=== PATIENT | female | born 1955 | race Caucasian/White ===

== ENCOUNTER 2018-01-12 13:37 | Inpatient (IN) | payer OTHER ==
[~2018-01-12] VITALS: Ht 165.1 cm; Wt 58.5 kg
[~2018-01-12 13:37] MED LIST: AMOXICILLIN250 MG PO; ARICEPT5 MG PO; ATORVASTATIN CA20 MG PO; CITALOPRAM HBR20 MG PO; LEVOTHYROXINE50 MCG PO; MELOXICAM7.5 MG PO; PANTOPRAZOLE SO40 MG PO; RANITIDINE HCL300 MG PO; SUCRALFATE1 GM PO; ZOFRAN ODT4 MG
--- OUTSIDE RECORDS SUMMARY | 2018-01-12 13:39 | XMS REPORT | Clinical Summary ---
Author Author [facility] Organization [facility] Address Unknown Phone Unavailable Care Team Providers Care Weight Loss Counselor Name Role Phone Tomy Hoff MD PCP Unavailable Allergies No Known Allergies Current Medications Prescription Sig. Disp. Refills Start End Date Status Date atorvastatin (LIPITOR) 20 Take 20 mg by mouth once 2 07/20/20 Active MG tablet daily. 17 dicyclomine (BENTYL) 20 Take 20 mg by mouth 3 0 07/10/20 Active mg tablet (three) times a day as 17 needed. donepezil (ARICEPT) 10 MG Take 10 mg by mouth 3 08/06/20 Active tablet nightly. 17 levothyroxine (SYNTHROID, Take 50 mcg by mouth once 2 07/20/20 Active LEVOXYL) 50 mcg tablet daily. 17 meloxicam (MOBIC) 15 mg TAKE 1 TABLET ONCE A DAY 1 06/25/20 Active tablet ORALLY 90 DAYS 17 pantoprazole (PROTONIX) Take 40 mg by mouth once 12 07/10/20 Active 40 MG EC tablet daily. 17 ranitidine (ZANTAC) 300 Take 300 mg by mouth once 2 08/17/20 Active MG tablet daily. 17 XIFAXAN 550 mg tablet 08/22/20 Active 17 Active Problems No known active problems Encounters Date Type Specialty Care Team Description 08/28/2017 Office Visit Obstetrics and Gynecology Vadim Painting MD Well woman exam with routine gynecological exam (Primary Dx); Breast cancer screening after 01/11/2017 Family History Medical History Relation Name Comments Multiple myeloma Father Breast cancer Mother Relation Name Status Comments Father Mother Social History Tobacco Use Types Packs/Day Years Used Date Never Assessed Sex Assigned at Date Recorded Not on file Last Filed Vital Signs Vital Sign Reading Time Taken Blood Pressure 126/76 08/28/2017 10:46 AM CDT Pulse 73 08/28/2017 10:46 AM CDT Temperature - - Respiratory Rate - - Oxygen Saturation - - Inhaled Oxygen - - Concentration Weight 61.2 kg (135 lb) 08/28/2017 10:46 AM CDT Height 162.6 cm (5' 4") 08/28/2017 10:46 AM CDT Body Mass Index 23.17 08/28/2017 10:46 AM CDT Plan of Treatment Health Maintenance Due Date Last Done Comments PAP SMEAR 1975 COLONOSCOPY 2004 MAMMOGRAM 2004 ZOSTER VACCINE 2014 INFLUENZA VACCINE 06/27/2017 Results * THINPREP TIS PAP (08/28/2017) Specimen Performing Laboratory Swab EXTERNAL LAB NON-INTERFACED after 01/11/2017 Insurance Payer Benefit Subscriber ID Type Phone Address Plan / Group AETNA AETNA PPO xxxxxxxxxx PPO OPEN CHOICE Home: [facility] [place] [phone]
--- OUTSIDE RECORDS SUMMARY | 2018-01-12 13:40 | XMS REPORT ---
Author Author [facility] Address Unknown Phone Unavailable Care Team Providers Care Pasta Press Operator Name Role Phone VALDO GARRETT Unavailable Unavailable Problems This patient has no known problems. Allergies, Adverse Reactions, Alerts This patient has no known allergies or adverse reactions. Medications This patient has no known medications. Results Test Description Test Time Test Comments Text Results Atomic Results Result Comments CHEST SINGLE (NOT PORTABLE) [place] [address] Patient Name: SHANA RODRÍGUEZ MR #: [id number] : 1955 Age/Sex: 62/F Req #: [id number] Adm Physician: Ordered by: VALDO GARRETT MD Report #: [id number] Location: ER Room/Bed: Procedure: [id number] DX/CHEST SINGLE (NOT PORTABLE) Exam Date: 10/05/17 Exam Time: 1020 REPORT STATUS: Signed PROCEDURE: X-RAY CHEST, ONE VIEW COMPARISON: None. INDICATIONS: CHEST PAIN FINDINGS: There are no consolidations, pleural effusions or pneumothorax. The cardiomediastinal silhouette and pulmonary vasculature are normal. There are no acute osseous abnormalities. CONCLUSION: No acute cardiopulmonary abnormality. Dictated by: Ashley Benítez M.D. on 10/05 at 10:52 Electronically approved by: Ashley Benítez M.D. on 2016 at 10:52 Dictated By: ASHLEY BENÍTEZ MD 105 Transcribed By: ROME on 10/05/17 1052 COPY TO: VALDO GARRETT MD CT BRAIN WO [place] [id number] [place] [address] Patient Name: SHANA RODRÍGUEZ MR #: [id number] : 1955 Age/Sex: 62/F Req #: [id number] Adm Physician: Ordered by: VALDO GARRETT MD Report #: [id number] Location: ER Room/Bed: Procedure: [id number] CT/CT BRAIN WO Exam Date: 10/05/17 Exam Time: 1021 REPORT STATUS: Signed Exam: Head CT without contrast History: Anxiety Comparison studies: None Technique: Axial images were obtained from the skull base to the vertex. Coronal and sagittal images reconstructed from the axial data. Intravenous contrast: None Findings: Scalp: No abnormalities. Bones: No fractures, blastic or lytic lesions. Brain sulci: Mildly prominent, slightly greater in the right hemisphere. Ventricles: Mild compensatory dilatation. No hydrocephalus. Extra-axial spaces : No masses, no fluid collection. Parenchyma: No mass, acute hemorrhage or acute or chronic cortical vascular insults. A few scattered subtle hypodensities in the subinsular white matter are nonspecific but most compatible with chronic small vessel ischemic changes. Sellar/suprasellar region: No abnormalities. Craniocervical junction: Patent foramen magnum. No Chiari one malformation. Incidental findings: Atherosclerotic calcifications in the carotid siphons. IMPRESSION: No acute abnormalities. Chronic findings: 1. Mild microvascular ischemic changes. 2. Mild generalized volume loss, slightly greater in the right cerebral hemisphere. Signed by: Dr. Ashley Noriega M.D. on 10/05/2017 11: 05 AM Dictated By: ASHLEY NORIEGA MD 110 Transcribed By: RAND on 10/05/171104 COPY TO: VALDO GARRETT MD
--- NOTE | 2018-01-12 15:13 | Diagnostic Imaging Report ---
PROCEDURE:CHEST 2 VIEWS TECHNIQUE:PA and lateral chest totaling 3 radiographs INDICATION:Cough COMPARISON:Patients [facility], DX, CHEST SINGLE (NOT PORTABLE), 10/05/2017, 10:18. FINDINGS: Symmetric hyperinflation with paucity of interstitial lung markings in the upper lung zones. No pleural effusions. Normal heart size. Mild bilateral hilar cranial deviation secondary to hyperinflation. Normal pulmonary vasculature. Intact skeleton. CONCLUSION: Sequela of emphysema without acute abnormality. Dictated by: Sal Grossman M.D. on 01/12/2018 at 15:13 Electronically approved by: Sal Grossman M.D. on 01/12/2018 at 15:13
[2018-01-12 16:47] LABS: BASOPHILS % 0.5 % (0.0-1.0); BILIRUBIN,URINE NEGATIVE (NEGATIVE); COLOR,URINE YELLOW (YELLOW); HEMATOCRIT 43.1 % (34.2-44.1); HEMOGLOBIN 14.1 g/dL (12.0-16.0); KETONES,URINE NEGATIVE (NEGATIVE); LEUKOCYTE ESTERASE ,URINE NEGATIVE (NEGATIVE); LYMPHOCYTES # (AUTO) 2.1 (1.0-3.2); LYMPHOCYTES % 34.7 % (18.0-39.1); MEAN CORPUSCULAR HEMOGLOBIN 28.9 pg (28-32); MEAN CORPUSCULAR HGB CONC 32.7 g/dL (31-35); MEAN CORPUSCULAR VOLUME 88.3 fL (81-99); MONOCYTES # (AUTO) 0.5 (0.2-0.8); MONOCYTES % 8.5 % (4.4-11.3); NEUTROPHILS # (AUTO) 3.3 (2.1-6.9); NEUTROPHILS % 55.8 % (38.7-80.0); NITRITE,URINE NEGATIVE (NEGATIVE); PLATELET COUNT 497 x10e3/uL (140-360); RED BLOOD COUNT 4.88 x10e6/uL (3.6-5.1); RED CELL DISTRIBUTION WIDTH 13.9 % (11.7-14.4); URINE UROBILINOGEN 0.2 mg/dL (0.2 - 1)
[2018-01-12 16:51] LABS: CLARITY,URINE SL CLOUDY (CLEAR); PROTEIN,URINE DIPSTICK TRACE (NEGATIVE)
[2018-01-12 16:57] LABS: STREPTOCOCCUS GRP A ANTIGEN NEGATIVE (NEGATIVE)
[2018-01-12 17:03] LABS: BACTERIA,URINE RARE /HPF; EPITHELIAL CELLS,URINE FEW /LPF; RBC,URINE 0-5 /HPF (0-5)
[2018-01-12 17:06] LABS: INFLUENZAE A&B ANTIGEN (RAPID) NEGATIVE (NEGATIVE)
[2018-01-12 17:10] LABS: ALANINE AMINOTRANSFERASE 27 IU/L (0-55); ALBUMIN 4.3 g/dL (3.5-5.0); ALKALINE PHOSPHATASE 67 IU/L (40-150); ANION GAP 15.2 mmol/L (8-16); BLOOD UREA NITROGEN 14 mg/dL (7-26); BUN/CREATININE RATIO 19 (6-25); CALCIUM 9.5 mg/dL (8.4-10.2); CARBON DIOXIDE 25 mmol/L (22-29); CHLORIDE 105 mmol/L (98-107); CREATININE, SERUM 0.74 mg/dL (0.57-1.11); EST GLOMERULAR FILTRATION RATE > 60 ML/MIN (60-); GLUCOSE 131 mg/dL (74-118); POTASSIUM 3.2 mmol/L (3.5-5.1); SODIUM 142 mmol/L (136-145)
[2018-01-12] MEDS ORDERED: DEXAMETHASONE SOD PHOS 10 MG/1 ML VIAL IV ONE (17:30)
[2018-01-12] MEDS ORDERED: ALBUTEROL/IPRATROPIUM 3 ML NEB NEB ONE (17:30)
[2018-01-12] MEDS ORDERED: GUAIFENESIN/DEXTROMETHORPHAN LIQD 5 ML UDC PO ONE (17:30)
[2018-01-12 17:46] LABS: PHOSPHORUS 3.3 MG/DL (2.3-4.7)
[2018-01-12 18:08] LABS: THYROID STIMULATING HORMONE 1.569 uIU/mL (0.350-4.940)
[2018-01-12] MEDS: CEFTRIAXONE SOD 1 GM VIAL IV SCH (21:45)
[2018-01-12] MEDS ORDERED: AZITHROMYCIN 500MG/SOD CHL 0.9% 250ML BAG IV SCH (21:45)
[2018-01-12 22:00] LABS: CREATINE KINASE 91 IU/L (29-168)
[2018-01-12 22:42] VITALS: BP 140/78
[2018-01-12] MEDS: SODIUM CHLORIDE 0.9% 1000ML 1,000 ML IV SCH (23:15)
[2018-01-12] MEDS: AZITHROMYCIN 500MG/NS 250 ML 250 ML IV SCH (23:15)
[2018-01-12] MEDS: ALBUTEROL SULF 0.083% NEB SOLN 3 ML NEB NEB SCH (23:20)
[2018-01-12] MEDS: IPRATROPIUM BROMIDE 0.02% 2.5 ML NEB NEB SCH (23:20)
[2018-01-12 23:59] VITALS: BP 112/65
[2018-01-13] MEDS: IPRATROPIUM BROMIDE 0.02% 2.5 ML NEB NEB SCH ×4 (02:08→19:35)
[2018-01-13] MEDS: ALBUTEROL SULF 0.083% NEB SOLN 3 ML NEB NEB SCH ×6 (02:08→22:50)
[2018-01-13 04:00] VITALS: BP 135/79
[2018-01-13 05:29] VITALS: BP 112/65
[2018-01-13] MEDS: SODIUM CHLORIDE 0.9% 1000ML 1,000 ML IV SCH ×2 (06:19→17:19)
[2018-01-13 07:22] LABS: BASOPHILS % 0.1 % (0.0-1.0); HEMATOCRIT 41.3 % (34.2-44.1); HEMOGLOBIN 13.7 g/dL (12.0-16.0); LYMPHOCYTES # (AUTO) 1.2 (1.0-3.2); LYMPHOCYTES % 15.1 % (18.0-39.1); MEAN CORPUSCULAR HEMOGLOBIN 29.3 pg (28-32); MEAN CORPUSCULAR HGB CONC 33.2 g/dL (31-35); MEAN CORPUSCULAR VOLUME 88.2 fL (81-99); MONOCYTES # (AUTO) 0.2 (0.2-0.8); MONOCYTES % 2.5 % (4.4-11.3); NEUTROPHILS # (AUTO) 6.5 (2.1-6.9); NEUTROPHILS % 81.8 % (38.7-80.0); PLATELET COUNT 515 x10e3/uL (140-360); RED BLOOD COUNT 4.68 x10e6/uL (3.6-5.1)
[2018-01-13 07:57] LABS: ALANINE AMINOTRANSFERASE 25 IU/L (0-55); ALBUMIN 3.9 g/dL (3.5-5.0); ALKALINE PHOSPHATASE 59 IU/L (40-150); ANION GAP 14.8 mmol/L (8-16); BLOOD UREA NITROGEN 13 mg/dL (7-26); BUN/CREATININE RATIO 19 (6-25); CALCIUM 9.2 mg/dL (8.4-10.2); CARBON DIOXIDE 23 mmol/L (22-29); CHLORIDE 110 mmol/L (98-107); CREATINE KINASE 55 IU/L (29-168); CREATININE, SERUM 0.69 mg/dL (0.57-1.11); EST GLOMERULAR FILTRATION RATE > 60 ML/MIN (60-); GLUCOSE 109 mg/dL (74-118); POTASSIUM 3.8 mmol/L (3.5-5.1); SODIUM 144 mmol/L (136-145)
[2018-01-13 08:00] VITALS: BP 135/72
[2018-01-13] MEDS ORDERED: ONDANSETRON HCL 4 MG ORAL DISINTEGRATING TAB PO PRN (08:30)
[2018-01-13] MEDS: LEVOTHYROXINE SODIUM 50 MCG TAB PO SCH (09:00)
[2018-01-13] MEDS ORDERED: NON-FORMULARY MEDICATION (Ranitidine Hcl 300 MG) PO SCH (09:00)
[2018-01-13] MEDS: CITALOPRAM HYDROBROMIDE 20 MG TAB PO SCH (09:26)
[2018-01-13] MEDS: MELOXICAM 7.5 MG TAB PO SCH (09:26)
[2018-01-13] MEDS: SUCRALFATE 1 GM TAB PO SCH ×3 (09:26→21:22)
[2018-01-13] MEDS: FAMOTIDINE 20 MG TAB PO SCH (09:26)
[2018-01-13] MEDS: PANTOPRAZOLE SOD 40 MG TABEC PO SCH (09:27)
--- NOTE | 2018-01-13 09:31 | History and Physical ---
This is Dr. Kenneth Huang covering for Dr. Hoff. HISTORY OF PRESENTING ILLNESS: This is . Babs Birch, who was in usual state of health until about a couple of weeks prior to admission the patient started with cough and congestion and continues with the same. She did receive multiple antibiotics and steroids in the office, failed outpatient bronchitis treatment, came into the emergency room and was admitted to the hospital for bronchitis, failed outpatient treatment. Patient's home medications include atorvastatin 20 mg, citalopram 20 mg, donepezil 10 mg daily, levothyroxine 50 mcg daily, meloxicam 7.5 mg daily, Zofran 4 mg daily, pantoprazole 40 mg, ranitidine 300, Carafate 1 g 3 times a day. SOCIAL HISTORY: Noncontributory. FAMILY HISTORY: Positive for coronary artery disease and hypertension. MEDICAL HISTORY: History of hyperlipidemia, depression, dementia, hypothyroidism, osteoarthritis, reflux esophagitis, too. REVIEW OF SYSTEMS: Negative for chest pain. Positive for shortness of breath. Positive for nausea. No vomiting or diarrhea. No constipation. No rectal bleed. No hematochezia, no hematemesis either. PHYSICAL EXAMINATION VITAL SIGNS: Temperature is 97.6. Respiratory rate of 18. Blood pressure is 135/79. Pulse oximetry 94 on room air. GENERAL: At admission patient is alert and oriented x3, a little shaky, anxious. CARDIOVASCULAR: S1 and S2 normal. Regular rate and rhythm. LUNGS: Positive for a few inspiratory wheezes. ABDOMEN: Nontender, nondistended. EXTREMITIES: No clubbing, no cyanosis and no edema. IMAGING STUDIES: Chest x-ray shows emphysema without acute abnormalities. LABORATORY VALUES: White count is 5.91, hemoglobin 14.1, hematocrit of 43.1. Chemistries: Sodium is 142, potassium is 3.2, glucose 131. Albumin is 4.3 and globulin 4.3. Urine was essentially normal. Serology negative for influenza type A and type B. ASSESSMENT: Bronchitis. The patient has been put on IV Rocephin and azithromycin. She is going at 125 mL an hour of sodium chloride, will cut it down. Albuterol-Atrovent treatments have been started. Will restart her home medication. Dr. Hoff will follow her up on Monday. Further recommendations on clinical course. Job#: [id number]
[2018-01-13] MEDS: ACETAMINOPHEN 325 MG TAB PO PRN (10:42)
[2018-01-13 12:00] VITALS: BP 129/70
[2018-01-13 14:31] LABS: CREATINE KINASE 51 IU/L (29-168)
[2018-01-13 16:00] VITALS: BP 139/69
[2018-01-13 20:00] VITALS: BP 148/75
[2018-01-13] MEDS: ATORVASTATIN 20 MG TAB PO SCH (21:22)
[2018-01-13] MEDS: DON PO SCH (21:22)
[2018-01-13] MEDS: CEFTRIAXONE SOD 1 GM VIAL IV SCH (21:22)
[2018-01-13] MEDS: AZITHROMYCIN 500MG/NS 250 ML 250 ML IV SCH (21:22)
[2018-01-14] VITALS (7 sets, daily range): BP systolic 133–155; BP diastolic 70–81
[2018-01-14] MEDS: ALBUTEROL SULF 0.083% NEB SOLN 3 ML NEB NEB SCH ×5 (02:40→19:45)
[2018-01-14] MEDS: IPRATROPIUM BROMIDE 0.02% 2.5 ML NEB NEB SCH ×4 (02:40→19:45)
[2018-01-14] MEDS: PANTOPRAZOLE SOD 40 MG TABEC PO SCH (08:38)
[2018-01-14] MEDS: SUCRALFATE 1 GM TAB PO SCH ×3 (08:38→21:07)
[2018-01-14] MEDS: MELOXICAM 7.5 MG TAB PO SCH (08:38)
[2018-01-14] MEDS: LEVOTHYROXINE SODIUM 50 MCG TAB PO SCH (08:38)
[2018-01-14] MEDS: CITALOPRAM HYDROBROMIDE 20 MG TAB PO SCH (08:38)
[2018-01-14] MEDS: FAMOTIDINE 20 MG TAB PO SCH (08:38)
[2018-01-14] MEDS: SODIUM CHLORIDE 0.9% 1000ML 1,000 ML IV SCH ×2 (08:38→21:06)
[2018-01-14] MEDS: ACETAMINOPHEN 325 MG TAB PO PRN (08:57)
[2018-01-14] MEDS: DON PO SCH (21:06)
[2018-01-14] MEDS: CEFTRIAXONE SOD 1 GM VIAL IV SCH (21:07)
[2018-01-14] MEDS: AZITHROMYCIN 500MG/NS 250 ML 250 ML IV SCH (21:07)
[2018-01-14] MEDS: ATORVASTATIN 20 MG TAB PO SCH (21:07)
[2018-01-15] VITALS (7 sets, daily range): BP systolic 131–172; BP diastolic 67–79
[2018-01-15] MEDS: IPRATROPIUM BROMIDE 0.02% 2.5 ML NEB NEB SCH ×4 (00:05→19:32)
[2018-01-15] MEDS: ALBUTEROL SULF 0.083% NEB SOLN 3 ML NEB NEB SCH ×6 (00:05→19:32)
[2018-01-15] MEDS: ACETAMINOPHEN 325 MG TAB PO PRN (06:41)
[2018-01-15 08:16] LABS: CREATINE KINASE 53 IU/L (29-168)
[2018-01-15] MEDS: SODIUM CHLORIDE 0.9% 1000ML 1,000 ML IV SCH ×2 (08:43→13:58)
[2018-01-15] MEDS: FAMOTIDINE 20 MG TAB PO SCH (08:50)
[2018-01-15] MEDS: SUCRALFATE 1 GM TAB PO SCH ×3 (08:50→21:03)
[2018-01-15] MEDS: CITALOPRAM HYDROBROMIDE 20 MG TAB PO SCH (08:50)
[2018-01-15] MEDS: LEVOTHYROXINE SODIUM 50 MCG TAB PO SCH (08:50)
[2018-01-15] MEDS: PANTOPRAZOLE SOD 40 MG TABEC PO SCH (08:50)
[2018-01-15] MEDS: MELOXICAM 7.5 MG TAB PO SCH (08:50)
[2018-01-15 17:29] LABS: CREATINE KINASE 57 IU/L (29-168)
[2018-01-15] MEDS: CEFTRIAXONE SOD 1 GM VIAL IV SCH (21:03)
[2018-01-15] MEDS: DON PO SCH (21:03)
[2018-01-15] MEDS: AZITHROMYCIN 500MG/NS 250 ML 250 ML IV SCH (21:03)
[2018-01-15] MEDS: ATORVASTATIN 20 MG TAB PO SCH (21:03)
[2018-01-16] MEDS: ALBUTEROL SULF 0.083% NEB SOLN 3 ML NEB NEB SCH ×3 (00:06→07:12)
[2018-01-16] MEDS: IPRATROPIUM BROMIDE 0.02% 2.5 ML NEB NEB SCH ×2 (00:06→07:12)
[2018-01-16 01:00] VITALS: BP 152/82
[2018-01-16 01:03] VITALS: BP 173/93
[2018-01-16 02:48] VITALS: BP 141/67
[2018-01-16 03:31] LABS: CREATINE KINASE 42 IU/L (29-168)
[2018-01-16 05:20] VITALS: BP 160/92
[2018-01-16 08:05] VITALS: BP 159/71
[2018-01-16 08:06] VITALS: BP 159/71
[2018-01-16] MEDS: CITALOPRAM HYDROBROMIDE 20 MG TAB PO SCH (08:44)
[2018-01-16] MEDS: PANTOPRAZOLE SOD 40 MG TABEC PO SCH (08:44)
[2018-01-16] MEDS: MELOXICAM 7.5 MG TAB PO SCH (08:44)
[2018-01-16] MEDS: SUCRALFATE 1 GM TAB PO SCH (08:44)
[2018-01-16] MEDS: FAMOTIDINE 20 MG TAB PO SCH (08:44)
[2018-01-16] MEDS: LEVOTHYROXINE SODIUM 50 MCG TAB PO SCH (08:44)
== END 2018-01-16 09:29 | disposition home or self-care (01) | DRG 195 ==
LOC: ER 13:37 → ERHOLD 22:25 → MED/SURG2 22:28
PROVIDERS: ADMIT Internal Medicine; ATTEND Internal Medicine
DX: J18.9 Pneumonia, unspecified organism (principal); F03.90 Unspecified dementia, unspecified severity, without behavioral disturbance, psychotic disturbance, mood disturbance, and anxiety; F32.9 Major depressive disorder, single episode, unspecified; E03.9 Hypothyroidism, unspecified; J40 Bronchitis, not specified as acute or chronic
CPT/HCPCS: 36415; 71046; 80053; 81001; 82550; 82553; 82948; 83518; 83735; 84100; 84443; 84484; 85025; 87040; 87070; 87086; 87400; 93005; 94640; 99284; J0456; J0696; J1100; J7030